=== PATIENT | male | born 1935 | race Caucasian/White ===

== ENCOUNTER 2018-06-26 12:07 | Emergency (ER) | payer OTHER ==
[~2018-06-26] VITALS: Ht 172.7 cm; Wt 68.0 kg
[~2018-06-26 12:07] MED LIST: ATOR40TA52; CITA10TA59 PO; DIGO0.2520; DILT240C50; DILTIAZEM; FUR20T; MULTTAB99 PO; PANTPAK PO; PRAVASTATIN PO; SILD30SU PO; TERA2CAP45; WARF2.5T
[2018-06-26 13:52] LABS: Alanine Aminotransferase 34 U/L (16-61); Albumin 3.3 g/dL (3.4-5.0); Anion Gap 3 (5-15); Aspartate Aminotransferase 20 U/L (15-37); BUN/Creatinine Ratio 18.6; Basophils # (auto) 0 uL; Basophils % (auto) 0.4 % (0.0-2.0); Blood Urea Nitrogen 19 mg/dL (7-18); Calcium 8.9 mg/dL (8.5-10.1); Carbon Dioxide 27 mmol/L (21-32); Chloride 106 mmol/L (98-107); Eosinophils # (auto) 0.1 uL; Eosinophils % (auto) 1.3 % (0.0-7.0); GFR African American 90 mL/min; GFR Non-African American 75 mL/min; Glucose 92 mg/dL (74-106); Hematocrit 40.4 % (41.0-53.0); Hemoglobin 12.9 g/dL (13.5-17.5); Lymphocytes # (auto) 1.4 uL; Lymphocytes % (auto) 19.3 % (10.0-50.0); Magnesium 2.4 mg/dL (1.6-2.6); Mean Corpuscular Hemoglobin 28.8 pg (28.0-32.0); Mean Corpuscular Hgb Conc. 31.9 g/dL (32.0-36.0); Mean Corpuscular Volume 90.2 fL (80.0-100.0); Monocytes # (auto) 0.8 uL; Monocytes % (auto) 10.2 % (0.0-12.0); Neutrophils # (auto) 5.2 uL; Neutrophils % (auto) 68.8 % (37.0-80.0); Platelet Count (auto) 263 10^3/uL (140-450); Potassium 3.9 mmol/L (3.5-5.1); Red Blood Cells 4.48 10^6/uL (4.5-5.90); Sodium 136 mmol/L (136-145); White Blood Cell 7.5 10^3/uL (4.4-10.8)
[2018-06-26 13:54] LABS: Red Cell Distribution Width 20.2 % (11.8-14.3)
[2018-06-26 13:57] LABS: Alkaline Phosphatase 195 U/L (45-117); Bilirubin, Total 1.5 mg/dL (0.2-1.0); Total Protein 7.7 g/dL (6.4-8.2)
[2018-06-26] MEDS ORDERED: METOPROLOL TARTRATE 1MG/1ML-5ML VIAL IV ONE (14:45)
[2018-06-26 18:23] VITALS: BP 129/96
== END 2018-06-26 15:25 | disposition short-term general hospital (02) ==
LOC: EDUNIT# 12:07 → EDBD 12:07 → ER 12:15
DX: I47.1 Supraventricular tachycardia (principal); R09.89 Other specified symptoms and signs involving the circulatory and respiratory systems; R79.89 Other specified abnormal findings of blood chemistry; I48.91 Unspecified atrial fibrillation; E11.9 Type 2 diabetes mellitus without complications; K21.9 Gastro-esophageal reflux disease without esophagitis; E78.5 Hyperlipidemia, unspecified; I10 Essential (primary) hypertension; Z90.49 Acquired absence of other specified parts of digestive tract; Z95.0 Presence of cardiac pacemaker; Z87.891 Personal history of nicotine dependence
CPT/HCPCS: 36415; 71045; 80053; 83735; 83880; 84484; 85025; 93005; 94761; 96374; 99291

== ENCOUNTER 2019-05-25 20:05 | Emergency (ER) | payer OTHER ==
[~2019-05-25] VITALS: Ht 175.3 cm; Wt 68.0 kg
[2019-05-25] MEDS ORDERED: ASPirin-EC 325mg tab PO ONE (21:30)
[2019-05-25] MEDS ORDERED: NITROGLYCERIN 0.4 MG SL TAB SL ONE (21:30)
[2019-05-25 22:05] LABS: Basophils # (auto) 0 uL; Basophils % (auto) 0.4 % (0.0-2.0); Eosinophils # (auto) 0.1 uL; Eosinophils % (auto) 1.5 % (0.0-7.0); Hemoglobin 14.8 g/dL (13.5-17.5); Lymphocytes # (auto) 1.5 uL; Lymphocytes % (auto) 15.6 % (10.0-50.0); Mean Corpuscular Hemoglobin 32.3 pg (28.0-32.0); Mean Corpuscular Hgb Conc. 34.4 g/dL (32.0-36.0); Mean Corpuscular Volume 93.7 fL (80.0-100.0); Monocytes % (auto) 10.7 % (0.0-12.0); Neutrophils % (auto) 71.8 % (37.0-80.0); Platelet Count (auto) 213 10^3/uL (140-450); Red Blood Cells 4.59 10^6/uL (4.5-5.90); Red Cell Distribution Width 14.1 % (11.8-14.3); White Blood Cell 9.8 10^3/uL (4.4-10.8)
[2019-05-25 22:09] LABS: Alanine Aminotransferase 67 U/L (16-61); Albumin 3.2 g/dL (3.4-5.0); Anion Gap 6 (5-15); Aspartate Aminotransferase 33 U/L (15-37); BUN/Creatinine Ratio 28.2; Blood Urea Nitrogen 22 mg/dL (7-18); Calcium 8.8 mg/dL (8.5-10.1); Carbon Dioxide 24 mmol/L (21-32); Chloride 105 mmol/L (98-107); GFR African American 123 mL/min; GFR Non-African American 101 mL/min; Glucose 111 mg/dL (74-106); Magnesium 2.3 mg/dL (1.6-2.6); Potassium 4.2 mmol/L (3.5-5.1); Sodium 135 mmol/L (136-145)
[2019-05-25 22:13] LABS: Alkaline Phosphatase 151 U/L (45-117); Bilirubin, Total 1.4 mg/dL (0.2-1.0); Total Protein 7.2 g/dL (6.4-8.2)
[2019-05-25 22:44] LABS: INR 1.07 (0.9-1.15); Partial Thromboplastin Time 28.9 sec (23.64-32.05)
[2019-05-25] MEDS ORDERED: ONDANSETRON HCL 4 MG/2 ML VIAL IV ONE (23:45)
[2019-05-26 01:28] LABS: Urine Bacteria NONE SEEN /hpf (None Seen); Urine Blood Negative /uL (Negative); Urine Mucus FEW (None Seen); Urine Specific Gravity 1.019 (1.001-1.035); Urine WBC 1 /hpf (0 - 3)
[2019-05-26 06:35] VITALS: BP 135/72
== END 2019-05-26 06:57 | disposition short-term general hospital (02) ==
LOC: EDBD 20:05 → ER 20:11
DX: R07.89 Other chest pain (principal); R74.8 Abnormal levels of other serum enzymes; R16.0 Hepatomegaly, not elsewhere classified; E11.9 Type 2 diabetes mellitus without complications; K21.9 Gastro-esophageal reflux disease without esophagitis; E78.5 Hyperlipidemia, unspecified; I10 Essential (primary) hypertension; Z87.891 Personal history of nicotine dependence; Z91.041 Radiographic dye allergy status; Z95.0 Presence of cardiac pacemaker
CPT/HCPCS: 36415; 71045; 71250; 74176; 76705; 80053; 81001; 82140; 83735; 83880; 84484; 85025; 85379; 85610; 85730; 93005; 94761; 96374; 99285; J2405

== ENCOUNTER 2023-03-29 16:40 | Emergency (ER) | payer OTHER ==
[~2023-03-29] VITALS: Ht 172.7 cm; Wt 70.0 kg
[~2023-03-29 16:40] MED LIST changes: -CITA10TA59 PO; +CITA10TA8 PO; -DIGO0.2520; +DIGO0.2525
[2023-03-29 18:30] VITALS: PULSE 70; RESP 17; O2SAT 97
[2023-03-29 19:44] LABS: Basophils # (auto) 0 10 ^3/uL (0-0.2); Basophils % (auto) 0.2 % (0.0-2.0); Eosinophils # (auto) 0 10 ^3/uL (0-0.8); Eosinophils % (auto) 0.3 % (0.0-7.0); Hematocrit 41.2 % (41.0-53.0); Hemoglobin 13.6 g/dL (13.5-17.5); Lymphocytes # (auto) 1.4 10 ^3/uL (0.4-5.4); Lymphocytes % (auto) 11.9 % (10.0-50.0); Mean Corpuscular Hemoglobin 31.8 pg (28.0-32.0); Mean Corpuscular Hgb Conc. 33.1 g/dL (32.0-36.0); Mean Corpuscular Volume 96.3 fL (80.0-100.0); Monocytes # (auto) 0.7 10 ^3/uL (0-1.3); Neutrophils # (auto) 9.4 10 ^3/uL (1.6-8.6); Neutrophils % (auto) 81.6 % (37.0-80.0); Red Blood Cells 4.28 10^6/uL (4.5-5.90); Red Cell Distribution Width 14.2 % (11.8-14.3); White Blood Cell 11.5 10^3/uL (4.4-10.8)
[2023-03-29 20:00] LABS: INR 1.19 (0.9-1.15)
[2023-03-29 20:05] LABS: Albumin 3.4 g/dL (3.4-5.0); Calcium 9.3 mg/dL (8.5-10.1); Potassium 4.4 mmol/L (3.5-5.1)
[2023-03-29 20:09] LABS: BUN/Creatinine Ratio 22.3 (10.0-20.0); Bilirubin, Total 1.9 mg/dL (0.2-1.0); Total Protein 7.8 g/dL (6.4-8.2)
[2023-03-29 20:52] VITALS: PULSE 70; RESP 16; O2SAT 96
[2023-03-30 00:33] VITALS: BP 161/81; PULSE 70; RESP 21; TEMP 98.1; O2SAT 97
== END 2023-03-30 00:53 | disposition home or self-care (01) ==
LOC: EDBD 16:40 → ER 16:40
DX: T67.5XXA Heat exhaustion, unspecified, initial encounter (principal); R55 Syncope and collapse; I48.91 Unspecified atrial fibrillation; I10 Essential (primary) hypertension; E11.9 Type 2 diabetes mellitus without complications; K21.9 Gastro-esophageal reflux disease without esophagitis; E78.5 Hyperlipidemia, unspecified; F17.210 Nicotine dependence, cigarettes, uncomplicated; Z90.49 Acquired absence of other specified parts of digestive tract; Z98.890 Other specified postprocedural states; Z91.040 Latex allergy status; Z79.899 Other long term (current) drug therapy; X58.XXXA Exposure to other specified factors, initial encounter; Y93.89 Activity, other specified; Y92.89 Other specified places as the place of occurrence of the external cause; Y99.8 Other external cause status
CPT/HCPCS: 36415; 70450; 71250; 74176; 80053; 80329; 82140; 83605; 83880; 84484; 85025; 85610

== ENCOUNTER 2024-08-16 10:49 | Emergency (ER) | payer OTHER ==
[~2024-08-16] VITALS: Ht 175.3 cm; Wt 67.5 kg
[~2024-08-16 10:49] MED LIST changes: -FUR20T; +FURO20TA4; -TERA2CAP45; +TERA2CAP79
--- NOTE | 2024-08-16 11:06 | ED.PDOC ---
HPI (NEURO) HPI Comments HPI: 89y M who presents to the ED for chief complaint of multiple complaints. Pt presents to the ED with the following: -Pt and pt states pt [facility] complaints including R sided weakness for the past 2 weeks, headache, multiple falls and ,shortness of breath, with associated bilateral ear ringing and referred to the ED for further evaluation -pt states his R sided weakness has been ongoing for the past 2 weeks with associated numbness to the R with associated R eye pain - pt states he has also been having multiple falls and states he has been off balance since December 2023 - pt has been having bilateral ear ringing for the past 1 week - pt has associated shorntess of breath when ambulating, but denies chest pain, diaphoresis, palpitations, nausea, vomiting, fever, cough, chills, or dizziness VITALS: Temp: 98.1 F RR: 15 02 sat : 97-98% on room air HR: 70 BP: 141/84 PMH: hyperlipidemia, hypertension, prostate, neuropathy, GERD, PSH: pacemaker, Social history: denies tobacco use, denies ETOH use, denies drug use Medications: flomax, pepcid Allergies: amiodarone, IV contrast, digoxin, gabapentin, iodine, lorezapam, REVIEW OF SYSTEMS: CONSTITUTIONAL: Denies acute: fever, diaphoresis, chills, HEAD: Denies acute: photophobia Eyes: Denies acute: Double vision, vision loss, eye pain, eye discharge. EARS: Denies acute: hearing loss, ear discharge, ear pain, THROAT: Denies acute: sore throat, swelling, difficulty swallowing , pain with swallowing, change in voice. NECK: Denies acute: neck pain, neck swelling, stiff neck. HEART: Denies acute : chest pain, palpitations, LUNGS: Denies acute: wheezing, cough, hemoptysis ABDOMEN: Denies acute: abdominal pain, Nausea, Vomiting, diarrhea, melena , hematemesis, hematochezia SKIN: Denies acute: rash, redness, lesions, itchiness. EXTREMITIES: Denies acute: calf pain, numbness, tingling, weakness, denies pain in extremity. Denies acute: Low back pain. Neuro: Denies acute: tremors, seizure like activity, confusion, dizziness, change in mental status, loss of bowel or bladder function, cauda equina like symptoms. : Denies acute: dysuria, hematuria, flank pain, increase in urinary frequency. PSYCH: Denies acute: hallucination, suicidal ideation, homicidal ideation. PHYSICAL EXAM: General: no acute distress, awake and alert. Head: normocephalic, atraumatic. Neck: supple, trachea is midline, no swelling. Throat: Normal phonation. Eyes:, no erythema, no purulent discharge, no proptosis, no icterus. Heart: regular rate, regular rhythm, no significant murmur appreciated. Lungs: no apparent respiratory distress, Able to speak in full sentences. No wheezing, no rhonchi, no crackles. No stridors Clear to auscultation bilaterally. Abdomen: non tender to palpation, non distended, soft, no guarding, no rebound, + bowel sounds. Neuro: Awake, Alert, oriented to name, self, situation, follows commands GCS=15. Speech is normal. Skin: no petechia, no purpura, no cyanosis, non-pale, not jaundice. Lower extremities: --trace - Pitting edema no deformity, no focal swelling, no calf TTP. Makes eye contact. moves all four extremities. Face: no apparent facial droop. Ambulating in the ED with a walker. Right supervisor edging muscle is weaker than the left PERRLA, EOM-I CN 2-12 are grossly intact, No nystagmus. No nuchal rigidity, Kernig's sign, Brudzinski's sign, no meningeal signs. Chief Complaint: Headache Time Seen by MD: 10:52 Primary Care Provider: HECTOR Polanco Notes: Nurses Notes, Allergies Information Source: Patient, Spouse Past Medical History PAST MEDICAL HISTORY: AFIB, DM, GERD, High Lipids, HTN Surgical History: Appendectomy, Hernia Repair, Pacemaker Family History Family History: Reviewed,noncontributory to illness Social History Smoker: Quit Greater Than 1 Year Alcohol: Denies ETOH Use Drugs: Denies Drug Use Lives In: Home Was a procedure done? Was a procedure done?: No X-Ray, Labs, Meds, VS Vital Signs Date Time Temp Pulse Resp B/P (MAP) Pulse Ox O2 Delivery O2 Flow Rate FiO2 08/16/24 17:28 97.9 70 20 142/74 (96) 96 97.9 08/16/24 13:55 71 16 97 Room Air 08/16/24 13:55 98.3 71 16 161/82 (108) 97 98.3 08/16/24 11:06 98.1 70 15 141/80 (100) 98 08/16/24 11:04 70 Lab Test 08/16/24 17:47 08/16/24 15:10 08/16/24 14:49 08/16/24 12:59 Range/Units POC Glucose 112 H 70-106 mg/dl SARS-CoV-2 Antigen (Rapid) Negative NEGATIVE Troponin I High Sensitivity 9 10 </=54 ng/L Test 08/16/24 11:38 08/16/24 11:02 Range/Units White Blood Count 9.4 4.4-10.8 10^3/uL Red Blood Count 4.16 L 4.5-5.90 10^6/uL Hemoglobin 13.8 13.5-17.5 g/dL Hematocrit 40.8 L 41.0-53.0 % Mean Corpuscular Volume 97.9 80.0-100.0 fL Mean Corpuscular Hemoglobin 33.2 H 28.0-32.0 pg Mean Corpuscular Hemoglobin Concent 33.9 32.0-36.0 g/dL Red Cell Distribution Width 14.2 11.8-14.3 % Platelet Count 249 140-450 10^3/uL Mean Platelet Volume 7.9 6.9-10.8 fL Neutrophils (%) (Auto) 70.0 37.0-80.0 % Lymphocytes (%) (Auto) 19.6 10.0-50.0 % Monocytes (%) (Auto) 8.5 0.0-12.0 % Eosinophils (%) (Auto) 1.5 0.0-7.0 % Basophils (%) (Auto) 0.4 0.0-2.0 % Neutrophils # (Auto) 6.6 1.6-8.6 10 ^3/uL Lymphocytes # (Auto) 1.8 0.4-5.4 10 ^3/uL Monocytes # (Auto) 0.8 0-1.3 10 ^3/uL Eosinophils # (Auto) 0.1 0-0.8 10 ^3/uL Basophils # (Auto) 0 0-0.2 10 ^3/uL Nucleated Red Blood Cells 0.0 % Prothrombin Time 11.4 9.3-11.8 sec Prothrombin Time INR 1.08 0.9-1.15 Activated Partial Thromboplast Time 26.8 24.5-34.5 SEC Sodium Level 142 136-145 mmol/L Potassium Level 4.4 3.5-5.1 mmol/L Chloride Level 108 H 98-107 mmol/L Carbon Dioxide Level 27 20-31 mmol/L Anion Gap 7 5-15 Blood Urea Nitrogen 20 9-23 mg/dL Creatinine 0.80 0.700-1.30 mg/dL Glomerular Filtration Rate Calc 86 >90 mL/min BUN/Creatinine Ratio 25.0 H 10.0-20.0 Serum Glucose 85 74-106 mg/dL Lactic Acid Level 1.3 0.4-2.0 mmol/L Calcium Level 10.1 8.7-10.4 mg/dL Magnesium Level 2.2 1.6-2.6 mg/dL Total Bilirubin 1.1 H 0.2-1.0 mg/dL Aspartate Amino Transferase (AST) 13 13-40 U/L Alanine Aminotransferase (ALT) 15 7-40 U/L Alkaline Phosphatase 131 H 46-116 U/L Troponin I High Sensitivity 9 </=54 ng/L B-Type Natriuretic Peptide 345.88 0-100 pg/mL Total Protein 7.4 5.7-8.2 g/dL Albumin 4.3 3.2-4.8 g/dL POC Glucose 117 H 70-106 mg/dl Current Medications Medications (Trade) Dose Ordered Sig/Giorgio Route Start Time Stop Time Status Last Admin Ceftriaxone Sodium 50 ml @ 100 mls/hr ONCE ONCE IV 08/16/24 12:15 08/16/24 12:44 DC 08/16/24 12:46 Sodium Chloride 1,000 ml @ 1,000 mls/hr Q1H ONCE IV 08/16/24 12:15 08/16/24 13:14 DC 08/16/24 12:[address] [address] Ph: [phone] DIAGNOSTIC IMAGING Diagnostic Imaging Report : [id number] Signed PATIENT: LUCIE REDDY ACCT: [id number] UNIT: [id number] : 1935 LOC: ER ROOM / BED: / AGE / SEX: 89 / M ADM STATUS: REG ER SERVICE 1104 ORDERING PHYSICIAN: COSMO BRODERICK DO PROCEDURE(s): HWOCT - HEAD WITHOUT CONTRAST REASON: LARSEN, falls, SOB, weak, R sided deficiet ORDER NUMBER(s): [id number], ACCESSION NUMBER(s): [id number] EXAM: CT HEAD WITHOUT CONTRAST HISTORY: LARSEN, falls, SOB, weak, R sided deficiet COMPARISON: CT HEAD WITHOUT CONTRAST on DOS: 03/29/23, CT CHEST ABD PELVIS WO CONTRAS on DOS: 05/25/19 TECHNIQUE: Axial images of the head were obtained and reformatted in coronal and sagittal planes. All CT scans at this medical facility are performed using dose modulation techniques as appropriate to a performed exam including the following: Automated exposure control was utilized; adjustment of the MA and/or KV according to patient size; and use of iterative reconstruction technique. CT Dose: CTDI volume is 65.62 mGy. Dose-length product is 1702.28 mGy*cm FINDINGS: There is age concordant moderate parenchymal volume loss. There is no evidence of acute intracranial hemorrhage, mass, mass effect midline shift. There is no hydrocephalus or extra-axial fluid collection. There are patchy chronic small- vessel ischemic changes in the supratentorial white matter. Blas-white matter differentiation is maintained. The visualized paranasal sinuses and mastoid air cells are clear. The calvarium is intact. IMPRESSION: 1. No acute intracranial process. HS:Y ATED BY: MAC HERNANDEZ MD DICTATED DATE/TIME: 08/16/24 114 SIGNED BY: MAC HERNANDEZ MD SIGNED DATE/TIME: 08/16/24 1141 CC: [place] [id number] Ph: [phone] DIAGNOSTIC IMAGING Diagnostic Imaging Report : [id number] Signed PATIENT: LUCIE REDDY ACCT: [id number] UNIT: [id number] : 1935 LOC: ER ROOM / BED: / AGE / SEX: 89 / M ADM STATUS: REG ER SERVICE 1104 ORDERING PHYSICIAN: COSMO BRODERICK DO PROCEDURE(s): CXRP - CHEST PORTABLE REASON: LARSEN, falls, SOB, weak, R sided deficiet ORDER NUMBER(s): [id number], ACCESSION NUMBER(s): [id number] CHEST RADIOGRAPH Indication: LARSEN, falls, SOB, weak, R sided deficiet Technique: Single frontal view of the chest was obtained COMPARISON: CHEST PORTABLE on DOS: 05/25/19 FINDINGS: Lines and Tubes: Left chest wall pacemaker Lungs: Multifocal airspace disease. Pleura: No effusion. No pneumothorax. Cardiomediastinal contours: Unremarkable Bones: Unremarkable IMPRESSION: Probable acute on chronic multifocal airspace disease. ATED BY: RUFINO MACKENZIE MD DICTATED DATE/TIME: 08/16/241140 SIGNED BY: RUFINO MACKENZIE MD SIGNED DATE/TIME: 08/16/241140 CC: [place] [id number] Ph: [phone] DIAGNOSTIC IMAGING Diagnostic Imaging Report : [id number] Signed PATIENT: LUCIE REDDY ACCT: [id number] UNIT: [id number] : 1935 LOC: ER ROOM / BED: / AGE / SEX: 89 / M ADM STATUS: REG ER SERVICE ORDERING PHYSICIAN: COSMO BRODERICK DO PROCEDURE(s): CS2 - CERVICAL WITHOUT CONTRAST REASON: LARSNE, falls, SOB, weak, R sided deficiet ORDER NUMBER(s): [id number], ACCESSION NUMBER(s): [id number] EXAM: CT CERVICAL WITHOUT CONTRAST HISTORY: LARSEN, falls, SOB, weak, R sided deficiet COMPARISON: CT HEAD WITHOUT CONTRAST on DOS: 03/29/23 CTDIvol 17.1 mGy, DLP 406 mGy*cm. TECHNIQUE: Multiple axial CT images of the spine were obtained using bone algorithm. Axial and coronal reformatting was done. Bone and soft tissue windows were reviewed. FINDINGS: No CT evidence of definite acute fracture, spinal dislocation, or significant appearing acute subluxation is seen. The visualized paraspinal soft tissues are grossly unremarkable. Multilevel degenerative changes of the spine. IMPRESSION: No definite CT evidence of acute fracture or dislocation of the bony cervical spine. ATED BY: RUFINO MACKENZIE MD DICTATED DATE/TIME: 08/16/24 1151 SIGNED BY: RUFINO MACKENZIE MD SIGNED DATE/TIME: 08/16/24 115 CC: Time of 1ST Reevaluation: 12:34 (The case was discussed with the [facility] admitting team (HPI, physical exam, labs and diagnostic tests that were available at the time of disposition, ED course, treatment plan) on the phone. They agreed to transfer the patient to their service by ALS for further evaluation and treatment. They requested a COVID test.) Patient Education/Counseling: Diagnosis, Treatment Family Education/Counseling: Diagnosis, Treatment Additional Information Patient presented with the above HPI.---multiple complaints---workup was initiated. patient was found with the above mentioned diagnosis. the following medications were ordered: IV fluids, ceftriaxone, the following tests were ordered: COVID 19 test, troponin x3, EKGx3, chest x-r ay, CBC, CMP, lactic acid, magnesium level, Pt time, PT/PTT, BNP, CT head without contrast, cervical without contrast, Patient ED course and VS have been stabilized. Patient has been reassessed in the ED and remained in a stable condition. Patient has been observed in the ED adequate length of time to insure improvement/stability. Escalation of care considered: Consideration of escalation to observation or admission. patient was admitted to the medicine team for further evaluation and treatment of their presentation. All the reports of any imaging studies that were ordered by myself were reviewed by myself. Departure 1 Departure Time of Disposition: 12:08 Impression: Primary Impression: Stroke-like symptoms Additional Impressions: Right sided weakness Multifocal pneumonia Headache Disposition: 02 SHORT TERM HOSPITAL Admit to: Tele Condition: Guarded Discharged With: Self Critical Care Note Critical Care Time?: No I personally scribed for COSMO BRODERICK DO ([email or web address]) on 08/16/24 at 11:06. Electronically submitted by Florentin Carlisle (SELVIN). I personally scribed for COSMO BRODERICK DO (GISSELLE) on 08/16/24 at 12:48. Electronically submitted by Florentin Carlisle (SELVIN). I personally scribed for COSMO [facility]ICK DO ([facility] on 08/16/24 at 12:53. Electronically submitted by Fl[facility]in Carlisle ([facility] I personally scribed for COSMO BRODERICK DO ([facility]) on 08/16/24 at 13:00. Electronically submitted by Florentin Carlisle ([facility]). I personally scribed for COSMO BRODERICK DO ([facility]) on 08/16/24 at 13:03. Patsy ctronically submitted by Florentin Carlisle ([facility]). I personally scribed for COSMO BRODERICK DO ([facility]) on 08/16/24 at 13:06. Electronically submitted by Florentin Carlisle ([facility] COSMO BRODERICK DO Aug 16, 2024 11:06
--- NOTE | 2024-08-16 11:07 | ECG ---
[facility] Test Date: 2024-08-16 Test Time: 11:04:41 Pat Name: LUCIE REDDY Department: ER Room: Gender: M Home Health Rn: GV : 1935 Requested By: COSMO BRODERICK Order Number: [id number] Reading MD: Manuel Velázquez Measurements Intervals Dora Rate: 70 P: 66 TN: 79 QRS: -84 QRSD: 111 T: 116 QT: 440 QTc: 475 Interpretive Statements Ventricular-paced rhythm No further analysis attempted due to paced rhythm Electronically Signed On 08-16-2024 12:54:36 PST by Manuel Velázquez Please click the below link to view image of tracing.
--- NOTE | 2024-08-16 11:42 | DVH ---
EXAM: CT HEAD WITHOUT CONTRAST HISTORY: LARSEN, falls, SOB, weak, R sided deficiet COMPARISON: CT HEAD WITHOUT CONTRAST on DOS: 03/29/23, CT CHEST ABD PELVIS WO CONTRAS on DOS: 05/25/19 TECHNIQUE: Axial images of the head were obtained and reformatted in coronal and sagittal planes. All CT scans at this medical facility are performed using dose modulation techniques as appropriate t o a performed exam including the following: Automated exposure control was utilized; adjustment of th e MA and/or KV according to patient size; and use of iterative reconstruction technique. CT Dose: CTDI volume is 65.62 mGy. Dose-length product is 1702.28 mGy*cm FINDINGS: There is age concordant moderate parenchymal volume loss. There is no evidence of acute intracranial hemorrhage, mass, mass effect midline shift. There is no hydrocephalus or extra-axial fluid collectio n. There are patchy chronic small-vessel ischemic changes in the supratentorial white matter. Blas-wh ite matter differentiation is maintained. The visualized paranasal sinuses and mastoid air cells are clear. The calvarium is intact. IMPRESSION: 1. No acute intracranial process. HS:Y
--- NOTE | 2024-08-16 11:43 | DVH ---
CHEST RADIOGRAPH Indication: LARSEN, falls, SOB, weak, R sided deficiet Technique: Single frontal view of the chest was obtained COMPARISON: CHEST PORTABLE on DOS: 05/25/19 FINDINGS: Lines and Tubes: Left chest wall pacemaker Lungs: Multifocal airspace disease. Pleura: No effusion. No pneumothorax. Cardiomediastinal contours: Unremarkable Bones: Unremarkable IMPRESSION: Probable acute on chronic multifocal airspace disease.
--- NOTE | 2024-08-16 11:54 | DVH ---
EXAM: CT CERVICAL WITHOUT CONTRAST HISTORY: LARSEN, falls, SOB, weak, R sided deficiet COMPARISON: CT HEAD WITHOUT CONTRAST on DOS: 03/29/23 CTDIvol 17.1 mGy, DLP 406 mGy*cm. TECHNIQUE: Multiple axial CT images of the spine were obtained using bone algorithm. Axial and coron al reformatting was done. Bone and soft tissue windows were reviewed. FINDINGS: No CT evidence of definite acute fracture, spinal dislocation, or significant appearing acute subluxa tion is seen. The visualized paraspinal soft tissues are grossly unremarkable. Multilevel degenerative changes of the spine. IMPRESSION: No definite CT evidence of acute fracture or dislocation of the bony cervical spine.
[2024-08-16 12:10] LABS: Alanine Aminotransferase 15 U/L (7-40); Albumin 4.3 g/dL (3.2-4.8); Anion Gap 7 (5-15); Aspartate Aminotransferase 13 U/L (13-40); Blood Urea Nitrogen 20 mg/dL (9-23); Calcium 10.1 mg/dL (8.7-10.4); Carbon Dioxide 27 mmol/L (20-31); Glucose 85 mg/dL (74-106); Magnesium 2.2 mg/dL (1.6-2.6); Potassium 4.4 mmol/L (3.5-5.1); Sodium 142 mmol/L (136-145); Total Protein 7.4 g/dL (5.7-8.2)
[2024-08-16 12:12] LABS: Alkaline Phosphatase 131 U/L (46-116); Chloride 108 mmol/L (98-107)
[2024-08-16 12:14] LABS: Basophils # (auto) 0 10 ^3/uL (0-0.2); Basophils % (auto) 0.4 % (0.0-2.0); Eosinophils # (auto) 0.1 10 ^3/uL (0-0.8); Eosinophils % (auto) 1.5 % (0.0-7.0); Hematocrit 40.8 % (41.0-53.0); Hemoglobin 13.8 g/dL (13.5-17.5); Lymphocytes # (auto) 1.8 10 ^3/uL (0.4-5.4); Lymphocytes % (auto) 19.6 % (10.0-50.0); Mean Corpuscular Hemoglobin 33.2 pg (28.0-32.0); Mean Corpuscular Hgb Conc. 33.9 g/dL (32.0-36.0); Mean Corpuscular Volume 97.9 fL (80.0-100.0); Monocytes # (auto) 0.8 10 ^3/uL (0-1.3); Monocytes % (auto) 8.5 % (0.0-12.0); Neutrophils # (auto) 6.6 10 ^3/uL (1.6-8.6); Platelet Count (auto) 249 10^3/uL (140-450); Red Blood Cells 4.16 10^6/uL (4.5-5.90); Red Cell Distribution Width 14.2 % (11.8-14.3); White Blood Cell 9.4 10^3/uL (4.4-10.8)
[2024-08-16 12:23] LABS: INR 1.08 (0.9-1.15); Partial Thromboplastin Time 26.8 SEC (24.5-34.5); Prothrombin Time 11.4 sec (9.3-11.8)
[2024-08-16 12:25] LABS: Bilirubin, Total 1.1 mg/dL (0.2-1.0)
[2024-08-16] MEDS: SODIUM CHLORIDE 0.9% 1,000 ML IV ONE (12:44)
[2024-08-16] MEDS: cefTRIAXone 1GM/50ML D5W 50 ML IV ONE (12:46)
[2024-08-16 16:15] LABS: COVID19 ANTIGEN SOFIA FIA NEGATIVE (NEGATIVE)
[2024-08-16 21:28] VITALS: BP 159/74; PULSE 70; RESP 18; TEMP 97.5; O2SAT 98
== END 2024-08-16 22:00 | disposition short-term general hospital (02) ==
LOC: ER 10:49
DX: I63.9 Cerebral infarction, unspecified (principal); R53.1 Weakness; J18.9 Pneumonia, unspecified organism; R51.9 Headache, unspecified; E78.5 Hyperlipidemia, unspecified; K21.9 Gastro-esophageal reflux disease without esophagitis; Z88.8 Allergy status to other drugs, medicaments and biological substances; Z79.899 Other long term (current) drug therapy; Z20.822 Contact with and (suspected) exposure to COVID-19
CPT/HCPCS: 36415; 70450; 71045; 72125; 80053; 82962; 83605; 83735; 83880; 84484; 85025; 85610; 85730; 87426; 93005; 96365; 99285; J0696; J7030